=== PATIENT | female | born 1965 | race Two or more races ===

== ENCOUNTER → 2017-11-09 | Outpatient (CLI) | payer OTHER | END | disposition home or self-care (01) | LOC: HKI 11:32 | DX: M75.52 Bursitis of left shoulder (principal) | CPT/HCPCS: 20610 ==

== ENCOUNTER 2018-02-28 15:41 | Emergency (ER) | payer OTHER ==
[2018-02-28 16:43] LABS: ADD MAN DIFF? NO
[2018-02-28] MEDS: HYDROmorphONE 1 MG/ML SYG IV (16:44)
[2018-02-28] MEDS: SOD CHLORIDE 0.9% 1,000 ML IV (16:44)
[2018-02-28] MEDS: LORAZEPAM 2 MG INJ IV (16:44)
[2018-02-28] MEDS: ONDANSETRON 4 MG INJ IV (16:44)
[2018-02-28 16:48] LABS: WHITE BLOOD COUNT 5.7 10^3/ul (4.8-10.8)
[2018-02-28 16:48] LABS: BASOPHILS % 0.4 % (0.0-2.0); EOSINOPHILS # 0.1 10^3/ul (0.0-0.5); EOSINOPHILS % 1.6 % (0.0-7.0); HEMATOCRIT 44.5 % (37.0-47.0); HEMOGLOBIN 15.4 g/dl (12.0-16.0); LYMPHOCYTES # 2.4 10^3/ul (0.8-2.9); LYMPHOCYTES % 42.5 % (15.0-51.0); MEAN CORPUSCULAR HEMOGLOBIN 30.3 pg (29.0-33.0); MEAN CORPUSCULAR HGB CONC 34.6 g/dl (32.0-37.0); MEAN CORPUSCULAR VOLUME 87.4 fl (82.0-101.0); MEAN PLATELET VOLUME 10.1 fl (7.4-10.4); MONOCYTE # 0.3 10^3/ul (0.3-0.9); MONOCYTES % 5.3 % (0.0-11.0); NEUTROPHIL # 2.8 10^3/ul (1.6-7.5); NEUTROPHILS % 49.7 % (39.0-77.0); PLATELET COUNT 291 10^3/UL (140-415); RED BLOOD COUNT 5.09 10^6/ul (4.20-5.40); RED CELL DISTRIBUTION WIDTH 11.6 % (11.5-14.5)
[2018-02-28 16:57] LABS: ADD UMIC NO; UR ASCORBIC ACID NEGATIVE (NEGATIVE); UR BILIRUBIN (Dip) NEGATIVE (NEGATIVE); UR BLOOD (Dip) NEGATIVE (NEGATIVE); UR CLARITY CLEAR (CLEAR); UR COLOR YELLOW (YELLOW); UR GLUCOSE (Dip) 3+ mg/dL (NEGATIVE); UR KETONES (Dip) NEGATIVE (NEGATIVE); UR LEUKOCYTE ESTERASE (Dip) NEGATIVE Leu/ul (NEGATIVE); UR NITRITE (Dip) NEGATIVE (NEGATIVE); UR SPECIFIC GRAVITY (Dip) 1.027 (1.003-1.030); UR TOTAL PROTEIN (Dip) NEGATIVE (NEGATIVE); UR UROBILINOGEN (Dip) NEGATIVE (NEGATIVE)
[2018-02-28 17:05] LABS: ALANINE AMINOTRANSFERASE 33 IU/L (13-69); ALBUMIN 4.2 g/dl (3.3-4.9); ALBUMIN/GLOBULIN RATIO 1.16; ALKALINE PHOSPHATASE 145 IU/L (42-121); ANION GAP 9 (8-16); ASPARTATE AMINO TRANSFERASE 20 IU/L (15-46); BLOOD UREA NITROGEN 16 mg/dl (7-20); CARBON DIOXIDE 29 mmol/L (21-31); CHLORIDE 103 mmol/L (97-110); CREATININE 0.51 mg/dl (0.44-1.00); GLUCOSE 330 mg/dl (70-220); LIPASE 79 U/L (23-300); POTASSIUM 4.1 mmol/L (3.5-5.1); SODIUM 137 mmol/L (135-144); TOTAL PROTEIN 7.8 g/dl (6.1-8.1)
[2018-02-28] MEDS: SOD CHLORIDE 0.9% 100 ML (17:52)
[2018-02-28] MEDS: IODIXANOL LOCM 100 ML BTL (17:52)
[2018-02-28] MEDS: DICYCLOMINE 20 MG INJ IM (19:22)
[2018-02-28] MEDS: MAGNESIUM CITRATE 300 ML BTL PO (19:22)
== END 2018-02-28 20:06 | disposition home or self-care (01) ==
LOC: E/R 15:41
DX: R10.32 Left lower quadrant pain (principal); R10.2 Pelvic and perineal pain; E11.65 Type 2 diabetes mellitus with hyperglycemia; I10 Essential (primary) hypertension; Z79.4 Long term (current) use of insulin; Z79.82 Long term (current) use of aspirin
CPT/HCPCS: 36415; 74177; 76830; 76856; 80053; 81003; 83690; 84703; 85025; 96372; 96374; 96375; 99285-25

== ENCOUNTER 2018-03-20 16:29 | Emergency (ER) | payer OTHER ==
[2018-03-20 18:37] LABS: URINE PH (Dip) POC 7.5 (5.0-8.5)
[2018-03-20 18:37] LABS: URINE BLOOD (Dip) POC Negative (NEGATIVE); URINE GLUCOSE (Dip) POC Negative (NEGATIVE); URINE KETONES (Dip) POC Negative (NEGATIVE); URINE LEUKOCYTE EST (Dip) POC Negative (NEGATIVE); URINE NITRITE (Dip) POC Negative (NEGATIVE); URINE TOTAL PROTEIN POC Negative (NEGATIVE)
[2018-03-20 19:14] LABS: ADD MAN DIFF? NO
[2018-03-20] MEDS: ONDANSETRON 4 MG INJ IV (19:16)
[2018-03-20] MEDS: HYDROmorphONE 1 MG/ML SYG IV (19:16)
[2018-03-20] MEDS: SOD CHLORIDE 0.9% 1,000 ML IV (19:16)
[2018-03-20 19:19] LABS: WHITE BLOOD COUNT 7.3 10^3/ul (4.8-10.8)
[2018-03-20 19:19] LABS: BASOPHILS % 0.3 % (0.0-2.0); EOSINOPHILS # 0.1 10^3/ul (0.0-0.5); EOSINOPHILS % 1.8 % (0.0-7.0); HEMATOCRIT 43.8 % (37.0-47.0); HEMOGLOBIN 15.4 g/dl (12.0-16.0); LYMPHOCYTES # 2.8 10^3/ul (0.8-2.9); MEAN CORPUSCULAR HEMOGLOBIN 30.3 pg (29.0-33.0); MEAN CORPUSCULAR HGB CONC 35.2 g/dl (32.0-37.0); MEAN CORPUSCULAR VOLUME 86.2 fl (82.0-101.0); MEAN PLATELET VOLUME 10.6 fl (7.4-10.4); MONOCYTE # 0.3 10^3/ul (0.3-0.9); MONOCYTES % 4.7 % (0.0-11.0); NEUTROPHIL # 3.9 10^3/ul (1.6-7.5); NEUTROPHILS % 53.8 % (39.0-77.0); PLATELET COUNT 327 10^3/UL (140-415); RED BLOOD COUNT 5.08 10^6/ul (4.20-5.40); RED CELL DISTRIBUTION WIDTH 11.7 % (11.5-14.5)
[2018-03-20 19:42] LABS: ALANINE AMINOTRANSFERASE 50 IU/L (13-69); ALBUMIN 4.3 g/dl (3.3-4.9); ALKALINE PHOSPHATASE 131 IU/L (42-121); ANION GAP 17 (8-16); ASPARTATE AMINO TRANSFERASE 32 IU/L (15-46); BILIRUBIN,INDIRECT 0.9 mg/dl (0-1.1); BILIRUBIN,TOTAL 0.9 mg/dl (0.2-1.3); BLOOD UREA NITROGEN 8 mg/dl (7-20); CALCIUM 10.3 mg/dl (8.4-10.2); CARBON DIOXIDE 25 mmol/L (21-31); CHLORIDE 101 mmol/L (97-110); CREATININE 0.45 mg/dl (0.44-1.00); GLUCOSE 164 mg/dl (70-220); LIPASE 65 U/L (23-300); POTASSIUM 3.7 mmol/L (3.5-5.1); SODIUM 139 mmol/L (135-144); TOTAL PROTEIN 8.2 g/dl (6.1-8.1)
[2018-03-20] MEDS: KETOROLAC 15 MG INJ IV (20:17)
== END 2018-03-20 21:01 | disposition home or self-care (01) ==
LOC: E/R 16:29
DX: K59.01 Slow transit constipation (principal); G89.4 Chronic pain syndrome; F41.9 Anxiety disorder, unspecified; F11.20 Opioid dependence, uncomplicated; F13.20 Sedative, hypnotic or anxiolytic dependence, uncomplicated; I10 Essential (primary) hypertension; E11.9 Type 2 diabetes mellitus without complications; Z79.4 Long term (current) use of insulin; Z79.82 Long term (current) use of aspirin
CPT/HCPCS: 36415; 74176; 80053; 81003; 83690; 85025; 96374; 96375; 99285-25

== ENCOUNTER 2018-03-26 23:18 | Inpatient (IN) | payer OTHER ==
[2018-03-27] MEDS ORDERED: GLUCOSE GEL 15 GRAM TUBE PO ×2 (00:30)
[2018-03-27] MEDS ORDERED: DEXTROSE 50% 50 ML SYRINGE IV ×2 (00:30)
[2018-03-27] MEDS ORDERED: GLUCOSE GEL 15 GRAM TUBE BUCCAL (00:30)
[2018-03-27] MEDS ORDERED: GLUCAGON 1 MG INJ IM (00:30)
[2018-03-27] MEDS ORDERED: ACETAMINOPHEN 325 MG TAB PO (00:30)
[2018-03-27] MEDS: HYDROmorphONE 0.5 MG/0.5 ML SYG IV ×3 (00:33→12:26)
[2018-03-27] MEDS: ONDANSETRON 4 MG INJ IV (00:34)
[2018-03-27] MEDS: SOD CHLORIDE 0.9% 1,000 ML IV ×2 (00:36→15:46)
[2018-03-27] MEDS: HYDROCODONE/APAP (5/325) TAB PO ×2 (01:41→21:17)
[2018-03-27] MEDS: ACCUCHECK AT 2AM (Patients on SS coverage) XX (02:00)
[2018-03-27] MEDS: PANTOPRAZOLE 40 MG INJ IV (05:24)
[2018-03-27 06:19] LABS: ADD MAN DIFF? NO
[2018-03-27 06:34] LABS: WHITE BLOOD COUNT 4.6 10^3/ul (4.8-10.8)
[2018-03-27 06:34] LABS: BASOPHILS % 0.4 % (0.0-2.0); EOSINOPHILS # 0.1 10^3/ul (0.0-0.5); HEMATOCRIT 37.8 % (37.0-47.0); HEMOGLOBIN 12.9 g/dl (12.0-16.0); LYMPHOCYTES # 1.9 10^3/ul (0.8-2.9); LYMPHOCYTES % 41.5 % (15.0-51.0); MEAN CORPUSCULAR HEMOGLOBIN 29.8 pg (29.0-33.0); MEAN CORPUSCULAR HGB CONC 34.1 g/dl (32.0-37.0); MEAN CORPUSCULAR VOLUME 87.3 fl (82.0-101.0); MEAN PLATELET VOLUME 10.2 fl (7.4-10.4); MONOCYTE # 0.3 10^3/ul (0.3-0.9); MONOCYTES % 7.3 % (0.0-11.0); NEUTROPHIL # 2.2 10^3/ul (1.6-7.5); NEUTROPHILS % 48.4 % (39.0-77.0); PLATELET COUNT 242 10^3/UL (140-415); RED BLOOD COUNT 4.33 10^6/ul (4.20-5.40); RED CELL DISTRIBUTION WIDTH 11.9 % (11.5-14.5)
[2018-03-27 07:07] LABS: ANION GAP 12 (8-16); BLOOD UREA NITROGEN 13 mg/dl (7-20); CALCIUM 9.3 mg/dl (8.4-10.2); CARBON DIOXIDE 25 mmol/L (21-31); CHLORIDE 108 mmol/L (97-110); CREATININE 0.52 mg/dl (0.44-1.00); GLUCOSE 131 mg/dl (70-220); POTASSIUM 3.4 mmol/L (3.5-5.1); SODIUM 142 mmol/L (135-144)
[2018-03-27] MEDS: INSULIN ASPART [NOVOLOG] 3 ML PEN SC ×4 (08:02→21:29)
[2018-03-27] MEDS: LORAZEPAM 0.5 MG TAB PO (09:51)
[2018-03-27] MEDS: DIGOXIN 0.25 MG TAB PO (13:16)
[2018-03-27] MEDS: POTASSIUM CHLORIDE (SR) 20 MEQ TAB PO (15:44)
[2018-03-27 17:31] LABS: TROPONIN-I < 0.010 ng/ml (0.000-0.120)
[2018-03-27] MEDS: PREGABALIN 75 MG CAP PO (21:17)
[2018-03-28] MEDS: HYDROmorphONE 0.5 MG/0.5 ML SYG IV ×4 (00:49→22:55)
[2018-03-28] MEDS: ACCUCHECK AT 2AM (Patients on SS coverage) XX (02:00)
[2018-03-28] MEDS: SOD CHLORIDE 0.9% 1,000 ML IV ×2 (05:16→22:56)
[2018-03-28] MEDS: PANTOPRAZOLE 40 MG INJ IV (05:26)
[2018-03-28] MEDS: HYDROCODONE/APAP (5/325) TAB PO (05:26)
[2018-03-28 07:04] LABS: ALANINE AMINOTRANSFERASE 37 IU/L (13-69); ALBUMIN 3.8 g/dl (3.3-4.9); ALBUMIN/GLOBULIN RATIO 1.35; ALKALINE PHOSPHATASE 88 IU/L (42-121); ANION GAP 13 (8-16); ASPARTATE AMINO TRANSFERASE 20 IU/L (15-46); BILIRUBIN,INDIRECT 1.1 mg/dl (0-1.1); BILIRUBIN,TOTAL 1.1 mg/dl (0.2-1.3); BLOOD UREA NITROGEN 13 mg/dl (7-20); CALCIUM 9.5 mg/dl (8.4-10.2); CARBON DIOXIDE 27 mmol/L (21-31); CHLORIDE 104 mmol/L (97-110); CREATININE 0.58 mg/dl (0.44-1.00); GLUCOSE 190 mg/dl (70-220); POTASSIUM 3.8 mmol/L (3.5-5.1); SODIUM 140 mmol/L (135-144); TOTAL PROTEIN 6.6 g/dl (6.1-8.1)
[2018-03-28 08:00] LABS: ADD UMIC YES; UR ASCORBIC ACID NEGATIVE (NEGATIVE); UR BACTERIA FEW /HPF (NONE SEEN); UR BILIRUBIN (Dip) NEGATIVE (NEGATIVE); UR BLOOD (Dip) NEGATIVE (NEGATIVE); UR CLARITY CLEAR (CLEAR); UR COLOR STRAW (YELLOW); UR GLUCOSE (Dip) 3+ mg/dL (NEGATIVE); UR KETONES (Dip) TRACE mg/dL (NEGATIVE); UR LEUKOCYTE ESTERASE (Dip) TRACE Leu/ul (NEGATIVE); UR NITRITE (Dip) NEGATIVE (NEGATIVE); UR RBC 1 /HPF (0-5); UR SPECIFIC GRAVITY (Dip) 1.007 (1.003-1.030); UR SQUAMOUS EPITHELIAL CELL FEW /HPF (FEW); UR TOTAL PROTEIN (Dip) NEGATIVE (NEGATIVE); UR UROBILINOGEN (Dip) NEGATIVE (NEGATIVE); UR WBC 2 /HPF (0-5)
[2018-03-28] MEDS: PREGABALIN 75 MG CAP PO ×2 (08:31→21:15)
[2018-03-28] MEDS: INSULIN ASPART [NOVOLOG] 3 ML PEN SC ×4 (08:40→21:17)
[2018-03-28] MEDS: POLYETHYLENE GLYCOL 17 GM PACKET PO (13:15)
[2018-03-28] MEDS: LUBIPROSTONE 24 MCG CAP PO (13:15)
[2018-03-28] MEDS: PEG/ELECTROLYTES 4L BTL PO (16:11)
[2018-03-28] MEDS: INSULIN GLARGINE [LANtus] 3 ML PEN SC (21:18)
[2018-03-29] MEDS ORDERED: ACCU-CHEK XX (02:00)
[2018-03-29] MEDS: ACCUCHECK AT 2AM (Patients on SS coverage) XX (02:34)
[2018-03-29] MEDS: PANTOPRAZOLE 40 MG INJ IV (05:55)
[2018-03-29] MEDS: HYDROmorphONE 0.5 MG/0.5 ML SYG IV ×3 (07:02→18:30)
[2018-03-29] MEDS: POLYETHYLENE GLYCOL 17 GM PACKET PO (09:00)
[2018-03-29] MEDS: SOD CHLORIDE 0.9% 1,000 ML IV ×2 (09:42→15:34)
[2018-03-29] MEDS: LUBIPROSTONE 24 MCG CAP PO (09:51)
[2018-03-29] MEDS: DULOXETINE 30 MG CAP DR PO (09:51)
[2018-03-29] MEDS: PREGABALIN 75 MG CAP PO ×2 (09:51→22:06)
[2018-03-29] MEDS: INSULIN ASPART [NOVOLOG] 3 ML PEN SC ×4 (10:06→20:52)
[2018-03-29] MEDS ORDERED: INSULIN ASPART [NOVOLOG] 3 ML PEN SC ×2 (13:00→17:55)
[2018-03-29 13:10] LABS: TROPONIN-I < 0.010 ng/ml (0.000-0.120)
[2018-03-29] MEDS: PROPOFOL 40 ML (13:58)
[2018-03-29] MEDS: PROPOFOL 20 ML (13:58)
[2018-03-29] MEDS: HYDROCODONE/APAP (5/325) TAB PO (15:42)
[2018-03-29 19:16] LABS: TROPONIN-I < 0.010 ng/ml (0.000-0.120)
[2018-03-29] MEDS: INSULIN GLARGINE [LANtus] 3 ML PEN SC (20:51)
[2018-03-30] MEDS: HYDROmorphONE 0.5 MG/0.5 ML SYG IV ×5 (00:34→20:25)
[2018-03-30 05:32] LABS: CHOLESTEROL 208 mg/dl (100-200)
[2018-03-30 05:32] LABS: CHOL/HDL RATIO 5.4 RATIO; HDL CHOLESTEROL 38 mg/dl (37-92); LDL CHOLESTEROL,CALCULATED 116 mg/dl; TRIGLYCERIDES 272 mg/dl (0-149)
[2018-03-30] MEDS: PANTOPRAZOLE 40 MG INJ IV (05:44)
[2018-03-30] MEDS: SOD CHLORIDE 0.9% 1,000 ML IV ×2 (05:45→20:23)
[2018-03-30] MEDS: INSULIN ASPART [NOVOLOG] 3 ML PEN SC ×4 (07:50→20:32)
[2018-03-30] MEDS: REGADENOSON 0.4 MG/5 ML SYG (08:55)
[2018-03-30] MEDS ORDERED: INSULIN ASPART [NOVOLOG] 3 ML PEN SC (09:00)
[2018-03-30] MEDS: POLYETHYLENE GLYCOL 17 GM PACKET PO (09:00)
[2018-03-30] MEDS: PREGABALIN 75 MG CAP PO ×2 (09:52→20:22)
[2018-03-30] MEDS: LUBIPROSTONE 24 MCG CAP PO (09:52)
[2018-03-30] MEDS: DULOXETINE 30 MG CAP DR PO (09:52)
[2018-03-30] MEDS: SUCRALFATE 1 GM TAB PO ×2 (13:43→20:22)
[2018-03-30] MEDS: CEFEPIME 1GM/50 ML (PMX) 50 ML IVPB ×2 (13:43→21:32)
[2018-03-30] MEDS: INSULIN GLARGINE [LANtus] 3 ML PEN SC (20:32)
[2018-03-31] MEDS: HYDROmorphONE 0.5 MG/0.5 ML SYG IV ×3 (04:59→20:50)
[2018-03-31] MEDS: PANTOPRAZOLE 40 MG INJ IV (04:59)
[2018-03-31] MEDS: INSULIN ASPART [NOVOLOG] 3 ML PEN SC ×4 (08:26→21:00)
[2018-03-31] MEDS: CEFEPIME 1GM/50 ML (PMX) 50 ML IVPB ×2 (09:33→21:24)
[2018-03-31] MEDS: DULOXETINE 30 MG CAP DR PO (09:34)
[2018-03-31] MEDS: SUCRALFATE 1 GM TAB PO ×2 (09:34→21:20)
[2018-03-31] MEDS: PREGABALIN 75 MG CAP PO ×2 (09:34→21:23)
[2018-03-31] MEDS: LUBIPROSTONE 24 MCG CAP PO (09:34)
[2018-03-31] MEDS: POLYETHYLENE GLYCOL 17 GM PACKET PO (09:35)
[2018-03-31] MEDS: HYDROCODONE/APAP (5/325) TAB PO (09:43)
[2018-03-31 12:13] LABS: ADD MAN DIFF? NO
[2018-03-31 12:14] LABS: BASOPHILS % 0.6 % (0.0-2.0); EOSINOPHILS # 0.1 10^3/ul (0.0-0.5); EOSINOPHILS % 1.4 % (0.0-7.0); HEMATOCRIT 38.9 % (37.0-47.0); HEMOGLOBIN 13.5 g/dl (12.0-16.0); LYMPHOCYTES # 2.2 10^3/ul (0.8-2.9); LYMPHOCYTES % 43.9 % (15.0-51.0); MEAN CORPUSCULAR HEMOGLOBIN 30.1 pg (29.0-33.0); MEAN CORPUSCULAR HGB CONC 34.7 g/dl (32.0-37.0); MEAN CORPUSCULAR VOLUME 86.8 fl (82.0-101.0); MEAN PLATELET VOLUME 10.1 fl (7.4-10.4); MONOCYTE # 0.3 10^3/ul (0.3-0.9); MONOCYTES % 5.9 % (0.0-11.0); NEUTROPHIL # 2.3 10^3/ul (1.6-7.5); NEUTROPHILS % 47.8 % (39.0-77.0); PLATELET COUNT 309 10^3/UL (140-415); RED BLOOD COUNT 4.48 10^6/ul (4.20-5.40); RED CELL DISTRIBUTION WIDTH 11.5 % (11.5-14.5)
[2018-03-31 12:14] LABS: WHITE BLOOD COUNT 4.9 10^3/ul (4.8-10.8)
[2018-03-31 12:32] LABS: ANION GAP 16 (8-16); BLOOD UREA NITROGEN 10 mg/dl (7-20); CALCIUM 9.5 mg/dl (8.4-10.2); CARBON DIOXIDE 26 mmol/L (21-31); CHLORIDE 100 mmol/L (97-110); CREATININE 0.51 mg/dl (0.44-1.00); GLUCOSE 195 mg/dl (70-220); POTASSIUM 3.5 mmol/L (3.5-5.1); SODIUM 138 mmol/L (135-144)
[2018-03-31] MEDS: SOD CHLORIDE 0.9% 1,000 ML IV (13:44)
[2018-03-31] MEDS: INSULIN GLARGINE [LANtus] 3 ML PEN SC (21:19)
[2018-04-01] MEDS: HYDROmorphONE 0.5 MG/0.5 ML SYG IV ×3 (05:11→14:57)
[2018-04-01] MEDS: PANTOPRAZOLE 40 MG INJ IV (05:13)
[2018-04-01] MEDS: SOD CHLORIDE 0.9% 1,000 ML IV (05:17)
[2018-04-01] MEDS: INSULIN ASPART [NOVOLOG] 3 ML PEN SC ×3 (08:20→17:56)
[2018-04-01] MEDS: SUCRALFATE 1 GM TAB PO ×2 (09:42→20:36)
[2018-04-01] MEDS: POLYETHYLENE GLYCOL 17 GM PACKET PO (09:42)
[2018-04-01] MEDS: CEFEPIME 1GM/50 ML (PMX) 50 ML IVPB ×2 (09:42→20:43)
[2018-04-01] MEDS: LUBIPROSTONE 24 MCG CAP PO (09:42)
[2018-04-01] MEDS: DULOXETINE 30 MG CAP DR PO (09:42)
[2018-04-01] MEDS: PREGABALIN 75 MG CAP PO ×2 (09:42→20:36)
[2018-04-01] MEDS: HYDROCODONE/APAP (5/325) TAB PO (20:07)
[2018-04-01] MEDS: DEXAMETHASONE 4 MG TAB PO (20:36)
[2018-04-01] MEDS: INSULIN GLARGINE [LANtus] 3 ML PEN SC (20:38)
== END 2018-04-01 21:45 | disposition home or self-care (01) | DRG 392 ==
LOC: MS1 23:18
PROC: 0DB68ZX Excision of Stomach, Via Natural or Artificial Opening Endoscopic, Diagnostic (ICD-10-PCS; principal; 2018-03-29 12:43)
PROC: 0DJD8ZZ Inspection of Lower Intestinal Tract, Via Natural or Artificial Opening Endoscopic (ICD-10-PCS; 2018-03-29 12:43)
DX: K29.70 Gastritis, unspecified, without bleeding (principal); N39.0 Urinary tract infection, site not specified; N12 Tubulo-interstitial nephritis, not specified as acute or chronic; R07.2 Precordial pain; R10.9 Unspecified abdominal pain; E87.6 Hypokalemia; E11.40 Type 2 diabetes mellitus with diabetic neuropathy, unspecified; F41.9 Anxiety disorder, unspecified; F32.9 Major depressive disorder, single episode, unspecified; Z90.49 Acquired absence of other specified parts of digestive tract; Z91.14 Patient's other noncompliance with medication regimen; K59.00 Constipation, unspecified; I10 Essential (primary) hypertension; B96.20 Unspecified Escherichia coli [E. coli] as the cause of diseases classified elsewhere; Z16.24 Resistance to multiple antibiotics
CPT/HCPCS: 72128; 72131; 72146; 72148; 74176; 78452; 80048; 80053; 80061; 81001; 82962; 84484; 85025; 87081; 87086; 88305; 88312; 93005; 93017; 93306

== ENCOUNTER 2019-04-24 07:07 | Emergency (ER) | payer OTHER ==
[2019-04-24] MEDS: KETOROLAC 30 MG INJ IM (08:39)
== END 2019-04-24 09:03 | disposition home or self-care (01) ==
LOC: FTE 07:07
DX: M54.9 Dorsalgia, unspecified (principal); E11.9 Type 2 diabetes mellitus without complications; Z79.4 Long term (current) use of insulin; Z79.82 Long term (current) use of aspirin
CPT/HCPCS: 96372; 99284-25